=== PATIENT | female | born 1985 | race Caucasian/White ===

== ENCOUNTER 2020-07-19 14:21 | Outpatient (CLI) | payer OTHER, SELFPAY ==
[2020-07-19 15:33] LABS: Beta HCG Quantitative < 2.39 mIU/ML
[2020-07-19 15:43] LABS: T4 Thyroxine 7.21 ug/dL (5.53-11.0)
[2020-07-19 16:11] LABS: Hepatitis C Virus Antibody Negative (Negative)
[2020-07-20 12:03] LABS: Rapid Plasma Reagin Non-Reactive (NonReactive)
[2020-07-24 12:57] LABS: HSV 1 IgM Screen Negative (Negative); HSV 2 IgM Screen Negative (Negative)
[2020-07-25 07:05] LABS: FSH 1.7 mIU/mL (***); LH 1.6 mIU/mL (***); Progesterone 3.4 ng/mL (***)
== END 2020-07-19 14:22 | disposition home or self-care (01) ==
LOC: ANHLAB 14:24
PROVIDERS: PCP Nurse Practitioner Family; Visit Provider Obstetrics & Gynecology
DX: N92.6 Irregular menstruation, unspecified (principal)
CPT/HCPCS: 36415; 83001; 83002; 84144; 84436; 84443; 84702; 86592; 86695; 86696; 86803

== ENCOUNTER 2021-01-29 09:04 | Outpatient (CLI) | payer OTHER, SELFPAY ==
--- NOTE | ~2021-01-29 | US_ITS ---
EXAMINATION: US pelvic complete w TV DATE: 01/29/2021 09:36 INDICATION: Irregular bleeding TECHNIQUE: Multiple transabdominal and endovaginal sonographic images of the pelvis were obtained. COMPARISON: None. FINDINGS: The uterus measures 9.9 x 6.3 x 4.7 cm. There is a 1.3 x 1.8 x 2.0 cm isoechoic lesion of t he anterior uterine body, consistent with an intramural fibroid. The endometrial complex measures 6 m m. The right ovary measures 2.5 x 2.2 x 2.3 cm. The left ovary measures 2.5 x 1.9 x 2.7 cm. There is normal vascular flow in the ovaries. There is no free fluid in the pelvis. IMPRESSION: 1. No sonographic correlate for the patient's symptoms. Reviewed, dictated and finalized at location A.
== END 2021-01-29 09:05 | disposition home or self-care (01) ==
PROVIDERS: PCP Nurse Practitioner Family; Visit Provider Obstetrics & Gynecology
DX: N92.6 Irregular menstruation, unspecified (principal)
CPT/HCPCS: 76830; 76856

== ENCOUNTER → 2021-02-23 00:58 | Outpatient (CLI) | payer OTHER, SELFPAY ==
[2021-02-23 16:45] LABS: SARS-CoV-2 RNA PCR Negative
== END ==
PROVIDERS: PCP Nurse Practitioner Family; Visit Provider Obstetrics & Gynecology
DX: Z01.812 Encounter for preprocedural laboratory examination (principal); Z20.822 Contact with and (suspected) exposure to COVID-19
CPT/HCPCS: C9803; U0003; U0005

== ENCOUNTER 2021-02-27 02:07 | Day surgery (SDC) | payer OTHER, SELFPAY ==
[2021-02-21 12:16] VITALS: BMI 25.7
[2021-02-27] MEDS: ACETAMINOPHEN 500 MG TABLET 1000 MG PO (10:35)
[2021-02-27] MEDS: LACTATED RINGERS 1,000 ML 30 ML IV CONT (10:36)
[2021-02-27 10:47] VITALS: BP 106/67; PULSE 64; RESP 16; TEMP 36; O2SAT 100
--- NOTE | 2021-02-27 11:22 | PM.IMHP ---
H&P: HPI History of Present Illness Date/Time: 02/27/21 11:22 She has had what she describes as spotting periodically for over a year and not relieved with hormonal options. Her ultrasound was normal. Discussed option of hysteroscopy for the recurrent irregular bleeding. She wants to get the hysteroscopy. She will be getting a D&C hysteroscopy secondary to abnormal uterine bleeding. She has declined IUD or Depo Provera. Informed of risks of procedure to include bleeding infection injury to other organs in the urine and to repair and/or remove those organs if necessary to save her life she informed of risk of uterine perforation risk of laparoscopy laparotomy. Informed that if the pathology comes back abnormal risk of needing further more extensive procedure. She declines trying other hormonal options. Discussed postop precautions pelvic rest for 2 weeks no bath or saunas 2 weeks. Her questions were answered. Consent signed Chief Complaint: Persistent abnormal uterine bleeding Review of Systems Review of Systems: All systems reviewed & are unremarkable except as noted in HPI and below Cardiovascular: Cardiovascular: Reports no additional cardiovascular complaints, Denies chest pain and Denies dyspnea Respiratory: Respiratory: Reports no additional respiratory complaints and Denies dyspnea Gastrointestinal: Gastrointestinal: Reports abdominal pain, Denies change in bowel habits, Denies diarrhea, Denies nausea and Denies vomiting Genitourinary: Genitourinary: Reports pelvic pain Musculoskeletal: Musculoskeletal: Reports back pain Integumentary/Breasts: Skin/Breast: Reports system reviewed and no additional complaints, except as docu Neurologic: Reports system reviewed and no additional complaints, except as documented PMFSH Past Medical History Medical History Abnormal Pap smear of cervix 07/19/20, ASCUS, HPV neg Asthma Mitral valve prolapse pt denies knowledge of or any symptoms from MVP Oligohydramnios Surgical History Surgical History H/O wisdom tooth extraction Hx of tonsillectomy Hx of tubal ligation Social History Social History Smoking status: Never smoker Second hand tobacco smoke exposure: No Alcohol intake: current Substance use: never Living arrangements: with family Additional living arrangements comments: CHILDREN Gender identity (if verbalized by the patient): Female Spiritual care concerns: No Meds Home Medications and Allergies Home Medications Medication Instructions Recorded Confirmed Type albuterol 90 mcg INHALATION Q4-6H PRN 02/21/21 02/27/21 History multivitamin [Multiple Vitamin] 1 tablet PO DAILY 02/21/21 02/27/21 History Allergies Allergy/AdvReac Type Severity Reaction Status Date / Time Sulfa (Sulfonamide Allergy Intermediate hives/RASH Verified 02/27/21 10:45 Antibiotics) venom-honey bee Allergy Intermediate SWELLING Verified 02/27/21 10:45 ketorolac Allergy Unknown Skin Verified 02/21/21 12:13 Reaction Vital Signs Vital Signs - 24 hr 02/27/21 10:47 Temperature 96.8 F L Pulse Rate 64 Respiratory Rate 16 Blood Pressure 106/67 Pulse Oximetry 100 Exam Const: Orientation/consciousness: oriented to person and oriented to place HENMT: Head: normal to inspection Eyes: General: appearance normal, both eyes and all related structures Resp: Effort & Inspection: normal respiratory effort Auscultation: clear to auscultation bilaterally Cardio: Rate: regular rate Rhythm: regular rhythm GI: Inspection: normal to inspection GI Palp: No Rebound tenderness present : External Female Exam: normal external appearance Speculum Exam - Vagina: normal appearance of the vagina Speculum Exam - Cervix: normal appearance of the cervix Bimanual exam- vagina & uterus: normal biman
--- NOTE | 2021-02-27 11:37 | WPDANESEPPF ---
Anes - Initial Pre Proc Eval Procedure: Operation Date: 02/27/21 11:45 Proposed Procedures p Hysteroscopy Dilation and Curettage - Dhiraj Reyna MD Date/Time: 02/27/21 11:37 Surgeon: Dhiraj Reyna MD Pre Op Diagnosis: abnormal uterine bleeding Patient Data Age: 35 Gender: F Height: 1.63 m Weight: 67.5 kg Last Vital Signs Temp 96.8 F L 02/27/21 10:47 Pulse 64 02/27/21 10:47 Resp 16 02/27/21 10:47 BP 106/67 02/27/21 10:47 Pulse Ox 100 02/27/21 10:47 Allergies Allergy/AdvReac Type Severity Reaction Status Date / Time Sulfa (Sulfonamide Allergy Intermediate hives/RASH Verified 02/27/21 10:45 Antibiotics) venom-honey bee Allergy Intermediate SWELLING Verified 02/27/21 10:45 ketorolac Allergy Unknown Skin Verified 02/21/21 12:13 Reaction Home Medications Medication Instructions Recorded Confirmed Type albuterol 90 mcg INHALATION Q4-6H PRN 02/21/21 02/27/21 History multivitamin [Multiple Vitamin] 1 tablet PO DAILY 02/21/21 02/27/21 History Patient hx anesthesia problems: none Family hx anesthesia problems: none PMFSH Past Medical History Medical History (Updated 02/27/21 @ 11:37 by Nathan Lewis MD) Abnormal Pap smear of cervix 07/19/20, ASCUS, HPV neg Asthma Mitral valve prolapse pt denies knowledge of or any symptoms from MVP Oligohydramnios Surgical History Surgical History H/O wisdom tooth extraction Hx of tonsillectomy Hx of tubal ligation Social History Social History Smoking status: Never smoker Second hand tobacco smoke exposure: No Alcohol intake: current Substance use: never Living arrangements: with family Additional living arrangements comments: CHILDREN Gender identity (if verbalized by the patient): Female Spiritual care concerns: No Anes - Eval Final PreProcedure Day of Procedure 02/27/21 11:37 Patient weight: normal Heart: regular rate and rhythm Lungs: clear to auscultation Airway: Mallampati scale class II Neurological: alert and oriented Last oral intake: >/= 8 hours ASA classification: II Emergent: no Anesthetic plan: proceed Anesthesia type and monitoring: general GIVS and standard monitoring Informed Consent: The patient's anesthetic plan and its attendant risks and benefits were discussed with the patient/family/POA. Questions were solicited and answers provided to the satisfaction of the patient/family/POA.
--- NOTE | 2021-02-27 11:46 | WPDHPUPDATE1 ---
History and Physical Update Update Date/Time: 02/27/21 11:46 History and Physical has been reviewed, including an updated exam of the patient. There are NO changes in the patient's condition. Risks, benefits, and alternatives have been discussed and questions answered. Patient agrees to proceed with procedure.
[2021-02-27] MEDS: ceFAZolin 2 GM/D5W 50 ML 2 GM/50 ML BAG IVPB (11:55)
[2021-02-27 12:27] VITALS: BP 96/64; PULSE 64; RESP 20; O2SAT 99
--- NOTE | 2021-02-27 12:40 | W.PM.PROC2 ---
Procedure Note - Detailed Date of Procedure 02/27/21 Pre-op Diagnosis abnormal uterine bleeding Post-op Diagnosis same Procedure Performed dilation and curettage diagnostic hysteroscopy Surgeon Dhiraj Reyna MD Anesthesia MAC and local Indications patient with persistent irregular bleeding with spotting in between periods resistant to control pills she declined Findings normal uterine cavity. Description of Procedure After informed consent was obtained patient was taken to the operating room and adequate IV sedation was administered. She was placed in high lithotomy position and prepped and draped in sterile fashion. Attention was turned to the vagina speculum was inserted single-tooth tenaculum placed on anterior lip of the cervix. The uterus was sound to 8.5 cm. The cervix was dilated to an 8 Marquez dilator the hysteroscope was inserted the cavity appeared normal there may have been some areas that were more proliferative lining. The hysteroscope was removed and an endometrial curettage and endocervical curettage was performed with moderate amount of tissue obtained. The patient tolerated procedure well sponge count was correct hemostasis was noted at the tenaculum site when it was removed. Patient was taken to recovery room. Estimated Blood Loss 5 Drains No Packing No Pathology yes (1. Endocervical currettage 2. Endometrial currettings) Complications No immediate complications Condition stable Disposition same day
[2021-02-27] MEDS: oxyCODONE HCL (*CRX) 5 MG TAB IR PO (12:53)
[2021-02-27 13:00] VITALS: BP 121/78; PULSE 54; RESP 20; O2SAT 100
[2021-02-27] MEDS: fentaNYL CITRATE INJ (*CRX) 100 MCG/2 ML VIAL 25 MCG IV PUSH ×4 (13:17→13:38)
[2021-02-27 13:30] VITALS: BP 118/72; PULSE 60; RESP 20
[2021-02-27 13:55] VITALS: BP 110/64; PULSE 60; RESP 20
== END 2021-02-27 14:00 | disposition home or self-care (01) ==
PROVIDERS: PCP Nurse Practitioner Family; Visit Provider Obstetrics & Gynecology
PROC: 0U5B8ZZ Destruction of Endometrium, Via Natural or Artificial Opening Endoscopic (ICD-10-PCS; CPT 58563; principal; 2021-02-27 11:45)
DX: N93.9 Abnormal uterine and vaginal bleeding, unspecified (principal); J45.909 Unspecified asthma, uncomplicated; Z79.51 Long term (current) use of inhaled steroids
CPT/HCPCS: 58558; 88305; A9270; J0690; J1170; J2250; J2704; J3010; J7030; J7120

== ENCOUNTER 2021-06-28 16:05 | Emergency (ER) | payer OTHER, SELFPAY ==
[2021-06-28] VITALS (15 sets, daily range): BP systolic 95–109; BP diastolic 60–81; PULSE 73–95; RESP 14–23; TEMP 36.2–36.8; O2SAT 98–100
--- NOTE | 2021-06-28 16:27 | ECG_ITS ---
Measurements Intervals [place] Rate: 84 P: 71 MI: 150 QRS: 46 QRSD: 78 T: 60 QT: 342 QTc: 405 Interpretive Statements SINUS RHYTHM NORMAL ECG Electronically Signed On 06-28-2021 20:01:52 [employer] by Garcia Colmenares D.O.
[2021-06-28 16:45] LABS: Basophils Percent Auto 0.1 % (0.2-1.2); Eosinophils Absolute Auto 0.2 K/mm3 (0-0.3); Eosinophils Percent Auto 2.4 % (0-4.4); Hematocrit 41.6 % (37.0-47.0); Hemoglobin 14.4 g/dL (12.0-15.0); Immature Granulocyte Absolute 0.02 K/mm3 (0.00-0.031); Immature Granulocyte Percent A 0.3 % (0-0.5); Lymphocytes Absolute Auto 2.82 K/mm3 (0.9-3.2); Lymphocytes Percent Auto 39.5 % (18.3-44.2); Mean Corpuscular HGB Conc 34.6 g/dl (32-36); Mean Corpuscular Hemoglobin 31.5 pg (26-34); Mean Platelet Volume 9.9 fl (7.4-10.4); Monocytes Absolute Auto 0.6 K/mm3 (0.1-0.6); Monocytes Percent Auto 8.7 % (2.6-8.5); Neutrophils Absolute Auto 3.5 K/mm3 (1.3-6.7); Platelet Count Result 239 k/mm3 (150-375); Red Blood Count 4.57 M/mm3 (4.2-5.4); Red Cell Distribution Width 11.4 % (11.5-14.5); White Blood Count 7.1 K/mm3 (4.5-10.0)
[2021-06-28 16:57] LABS: Alanine Aminotransferase 20 U/L (4-35); Albumin Level 4.2 g/dL (3.5-5.1); Alkaline Phosphatase 60 U/L (38-126); Anion Gap 5 mmol/L (8-16); Aspartate Amino Transferase 20 U/L (14-36); Bilirubin,Total 0.3 mg/dL (0.2-1.3); Blood Urea Nitrogen 11 mg/dL (7-17); Calcium 8.8 mg/dL (8.4-10.2); Carbon Dioxide 29 mmol/L (22-30); Chloride 105 mmol/L (98-107); Estimated CRCL calculation 100 ml/min; Estimated Glomerular Filt Rate > 60; Glucose 95 mg/dL (65-110); Sodium 139 mmol/L (137-145)
--- NOTE | 2021-06-28 17:17 | ED.DIZZY ---
HPI - Dizziness General Chief Complaint: Dizziness Stated Complaint: dizzy Time Seen by Provider: 06/28/21 17:03 Source: patient Mode of arrival: ambulatory Limitations: no limitations History of Present Illness HPI Narrative: Patient is a 36-year-old female complaining of dizziness, described as the room spinning, worse with movement of the head that started this morning but states that she is feeling better. Patient denies any headache, speech or visual disturbance, focal weakness or numbness, or unsteady gait. Patient denies any chest pain, shortness of breath, abdominal pain, nausea, vomiting, fever or chills. Related Data Home Medications Medication Instructions Recorded Confirmed albuterol 90 mcg INHALATION Q4-6H PRN 02/21/21 03/30/21 multivitamin [Multiple Vitamin] 1 tablet PO DAILY 02/21/21 03/30/21 Allergies Allergy/AdvReac Type Severity Reaction Status Date / Time Sulfa (Sulfonamide Allergy Intermediate hives/RASH Verified 03/27/21 14:06 Antibiotics) venom-honey bee Allergy Intermediate SWELLING Verified 03/27/21 14:06 ketorolac Allergy Unknown Skin Verified 03/27/21 14:06 Reaction Review of Systems Review of Systems: All systems reviewed & are unremarkable except as noted in HPI and below Constitutional: Constitutional: Denies body ache(s), Denies chills, Denies excessive sweating, Denies fatigue, Denies fever(s), Denies headache(s), Denies lethargy, Denies malaise, Denies weakness and Denies weight loss Eyes: Eyes: Denies blurry vision, Denies change in vision and Denies loss of vision ENT: Denies dizziness, Denies ear discharge, Denies headache(s), Denies lip swelling, Denies epistaxis, Denies nasal congestion, Denies neck pain, Denies throat swelling and Denies tongue swelling Cardiovascular: Cardiovascular: Denies chest pain, Denies chest pain at rest, Denies chest pain with activity, Denies diaphoresis, Denies rapid heart rate, Denies edema, Denies irregular heart rhythm, Denies lightheadedness, Denies palpitations, Denies dyspnea and Denies dyspnea on exertion Respiratory: Respiratory: Denies chest congestion, Denies cough, Denies hemoptysis, Denies dyspnea and Denies dyspnea on exertion Gastrointestinal: Gastrointestinal: Denies abdominal pain, Denies melena, Denies hematochezia, Denies diarrhea, Denies nausea, Denies vomiting and Denies hematemesis Musculoskeletal: Musculoskeletal: Denies abnormal gait, Denies deformity, Denies joint swelling, Denies limited range of motion, Denies neck pain and Denies numbness Neurologic: Denies Abnormal speech present, Denies abnormal gait, Denies confusion, Denies headache(s), Denies focal weakness, Denies loss of vision, Denies numbness, Denies Other visual disturbances, Denies Sensory deficit (Neuro) and Denies weakness Psychiatric: Psychiatric: Denies confusion, Denies depression, Denies auditory hallucinations, Denies homicidal ideation and Denies suicidal ideation Endocrine: Endocrine: Denies cold intolerance, Denies excessive sweating, Denies fatigue, Denies heat intolerance and Denies palpitations Hematologic/Lymphatic: Hematologic/Lymphatic: Denies easy bleeding and Denies easy bruising Allergic/Immunologic: Allergic/Immunologic: Denies lip swelling, Denies throat swelling and Denies tongue swelling PMFSH Past Medical History Medical History Abnormal Pap smear of cervix 07/19/20, ASCUS, HPV neg Asthma Mitral valve prolapse pt denies knowledge of or any symptoms from MVP Oligohydramnios Surgical History Surgical History H/O wisdom tooth extraction History of dilation and curettage History of hysteroscopy Hx of tonsillectomy Hx of tubal ligation Social History Social History Smoking status: Never smoker Second hand tobacco smoke exposure: No Alcohol intake: current Subst
== END 2021-06-28 19:31 | disposition home or self-care (01) ==
LOC: ANHED 18:02
PROVIDERS: Emergency Medicine; Emergency Provider Emergency Medicine
DX: H81.10 Benign paroxysmal vertigo, unspecified ear (principal); J45.909 Unspecified asthma, uncomplicated
CPT/HCPCS: 36415; 80053; 81025; 85025; 93005; 99284

== ENCOUNTER 2022-10-13 14:53 | Outpatient (CLI) | payer OTHER, SELFPAY ==
[2022-10-16 04:45] LABS: FSH 6.1 mIU/mL (***); LH 2.6 mIU/mL (***); Progesterone 0.9 ng/mL (***)
== END 2022-10-13 14:54 | disposition home or self-care (01) ==
PROVIDERS: Visit Provider Obstetrics & Gynecology
DX: N92.6 Irregular menstruation, unspecified (principal)
CPT/HCPCS: 36415; 83001; 83002; 84144; 84443

== ENCOUNTER 2023-01-21 16:50 | Outpatient (CLI) | payer OTHER, SELFPAY ==
--- NOTE | ~2023-01-21 | US_ITS ---
US abdomen limited INDICATION: Nausea and vomiting PROCEDURE: Realtime right upper abdominal ultrasound. COMPARISON: CT dated 03/22/2017 FINDINGS: The pancreas is normal without focal mass or pancreatic ductal dilation. There is an isoec hoic ill-defined mass in the left hepatic lobe causing mass effect on the gallbladder measuring 3 x 2 .4 x 2.3 cm. There is normal directional flow in the portal vein. The gallbladder is normal without stones, gallbladder wall thickening or pericholecystic fluid. Comm on bile duct measures 4 mm. No sonographic Valdez's sign. IMPRESSION: 1: Isoechoic liver mass measuring up to 3 cm causing mass effect on the gallbladder. Correlation with CT without and with contrast with delayed postcontrast images recommended. Reviewed, dictated and finalized at location L. IMPRESSION: 1: Isoechoic liver mass measuring up to 3 cm causing mass effect on the gallbla dder. Correlation with CT without and with contrast with delayed postcontrast i juhi recommended.
== END 2023-01-21 16:51 | disposition home or self-care (01) ==
LOC: ANHIMG 16:53
PROVIDERS: Visit Provider Nurse Practitioner
DX: R11.2 Nausea with vomiting, unspecified (principal); K21.9 Gastro-esophageal reflux disease without esophagitis; F12.90 Cannabis use, unspecified, uncomplicated
CPT/HCPCS: 76705

== ENCOUNTER 2023-02-05 01:52 | Day surgery (SDC) | payer OTHER, SELFPAY ==
[2023-01-26 09:14] VITALS: BMI 28.3
--- NOTE | 2023-02-04 16:20 | P.HP_ITS ---
History of Present Illness History of Present Illness Consent: Risks, benefits, and alternatives have been discussed and questions answered. Patient agrees to proceed with procedure. Chief complaint: vomiting, nausea, GERD Narrative: Mercedes Coffman is a 37 year old female Who was referred for investigation of persistent nausea that comes and goes during the day. She also will vomit or regurgitate acid about once a week. She denies dysphagia. Omeprazole has not seemed to help. she in fact gained weight when she was taking omeprazole. He has stop it and is feeling somewhat better. She does use ibuprofen a couple times a week and is a daily user of marijuana [facility] Past Medical History Medical History Abnormal finding on imaging of liver Abnormal Pap smear of cervix 07/19/20, ASCUS, HPV neg Anxiety Asthma Gastroesophageal reflux disease Liver mass, left lobe Marijuana smoker Mitral valve prolapse pt denies knowledge of or any symptoms from MVP Nausea and vomiting Oligohydramnios Surgical History Surgical History H/O wisdom tooth extraction History of dilation and curettage History of hysteroscopy Hx of tonsillectomy Hx of tubal ligation Social History Social History Smoking status: Never smoker Second hand tobacco smoke exposure: No Alcohol intake: never Substance use: current Substance use type: marijuana Other substance usage details: gummies to help with sleep Lack of Transportation: No Lack of Food: Never True Current Housing: I Have Housing Concerned About Future Housing: No Difficulty Paying Gas/Electric Bills: No Difficulty Paying for Meds: No Currently Unemployed: No Education: High School Diploma/GED Difficulty w/ Childcare or Family Care: No Living arrangements: with family Additional living arrangements comments: CHILDREN Gender identity (if verbalized by the patient): Female Spiritual care concerns: No Meds Home Medications and Allergies Home Medications Medication Instructions Recorded Confirmed Type multivitamin 1 tablet PO DAILY 02/21/21 02/05/23 History lansoprazole 30 mg capsule,delayed 30 mg PO DAILY #30 caps 01/14/23 02/05/23 Rx release (Prevacid) semaglutide (weight loss) 0.5 0.5 mg subcut WEEKLY 01/26/23 02/05/23 History mg/0.5 mL subcutaneous pen injector (Wegovy) Allergies Allergy/AdvReac Type Severity Reaction Status Date / Time Sulfa (Sulfonamide Allergy Intermediate hives/RASH Verified 02/05/23 10:26 Antibiotics) venom-honey bee Allergy Intermediate SWELLING Verified 02/05/23 10:26 ketorolac Allergy Unknown Skin Verified 02/05/23 10:26 Reaction Assessment and Plan Assessment and plan (1) Nausea and vomiting: Qualifiers: Vomiting type: unspecified Qualified Code(s): R11.2 - Nausea with vo miting, unspecified Code(s): R11.2 - Nausea with vomiting, unspecified Status: Acute Assessment and Plan: EGD with possible biopsy or dilatation or cautery.
[2023-02-05 10:27] VITALS: BP 100/70; PULSE 81; RESP 16; TEMP 36.4; O2SAT 99
[2023-02-05] MEDS: LACTATED RINGERS 1,000 ML 150 ML IV CONT (10:37)
--- NOTE | 2023-02-05 10:55 | WPDANESEPPF ---
Anes - Initial Pre Proc Eval Procedure: Operation Date: 02/05/23 11:30 Proposed Procedures p Esophagogastroduodenoscopy - Marcus Nevarez MD Date/Time: 02/05/23 10:55 Surgeon: Marcus Nevarez MD Pre Op Diagnosis: vomiting, nausea, GERD Patient Data Age: 37 Gender: F Height: 1.63 m Weight: 74.6 kg Last Vital Signs Temp 97.6 F 02/05/23 10:27 Pulse 81 02/05/23 10:27 Resp 16 02/05/23 10:27 BP 100/70 02/05/23 10:27 Pulse Ox 99 02/05/23 10:27 O2 Del Method Room Air 02/05/23 10:27 Allergies Allergy/AdvReac Type Severity Reaction Status Date / Time Sulfa (Sulfonamide Allergy Intermediate hives/RASH Verified 02/05/23 10:26 Antibiotics) venom-honey bee Allergy Intermediate SWELLING Verified 02/05/23 10:26 ketorolac Allergy Unknown Skin Verified 02/05/23 10:26 Reaction Home Medications Medication Instructions Recorded Confirmed Type multivitamin 1 tablet PO DAILY 02/21/21 02/05/23 History lansoprazole 30 mg capsule,delayed 30 mg PO DAILY #30 caps 01/14/23 02/05/23 Rx release (Prevacid) semaglutide (weight loss) 0.5 0.5 mg subcut WEEKLY 01/26/23 02/05/23 History mg/0.5 mL subcutaneous pen injector (Wegovy) Patient hx anesthesia problems: none Family hx anesthesia problems: none Results Review: All pre-operative results and documents have been reviewed as part of the pre-operative evaluation. [facility] Past Medical History Medical History (Updated 01/22/23 @ 10:35 by Esther Oakley APRN) Abnormal finding on imaging of liver Abnormal Pap smear of cervix 07/19/20, ASCUS, HPV neg Anxiety Asthma Gastroesophageal reflux disease Liver mass, left lobe Marijuana smoker Mitral valve prolapse pt denies knowledge of or any symptoms from MVP Nausea and vomiting Oligohydramnios Surgical History Surgical History H/O wisdom tooth extraction History of dilation and curettage History of hysteroscopy Hx of tonsillectomy Hx of tubal ligation Social History Social History Smoking status: Never smoker Second hand tobacco smoke exposure: No Alcohol intake: never Substance use: current Substance use type: marijuana Other substance usage details: gummies to help with sleep Lack of Transportation: No Lack of Food: Never True Current Housing: I Have Housing Concerned About Future Housing: No Difficulty Paying Gas/Electric Bills: No Difficulty Paying for Meds: No Currently Unemployed: No Education: High School Diploma/GED Difficulty w/ Childcare or Family Care: No Living arrangements: with family Additional living arrangements comments: CHILDREN Gender identity (if verbalized by the patient): Female Spiritual care concerns: No Anes - Eval Final PreProcedure Day of Procedure 02/05/23 10:55 Patient weight: normal Heart: regular rate and rhythm Lungs: clear to auscultation Airway: Mallampati scale class II Neurological: alert and oriented Last oral intake: >/= 8 hours ASA classification: II Emergent: no Anesthetic plan: proceed Anesthesia type and monitoring: general GIVS and standard monitoring Results Review: All pre-operative results and documents have been reviewed as part of the pre-operative evaluation. Informed Consent: The patient's anesthetic plan and its attendant risks and benefits were discussed with the patient/family/POA. Questions were solicited and answers provided to the satisfaction of the patient/family/POA.
[2023-02-05 11:47] VITALS: BP 96/67; PULSE 66; RESP 17; O2SAT 98
[2023-02-05 11:57] VITALS: BP 102/66; PULSE 61; RESP 17; O2SAT 100
[2023-02-05 12:07] VITALS: BP 106/76; PULSE 67; RESP 17; O2SAT 100
== END 2023-02-05 12:16 | disposition home or self-care (01) ==
PROVIDERS: Visit Provider Internal Medicine Gastroenterology
PROC: 0DJ08ZZ Inspection of Upper Intestinal Tract, Via Natural or Artificial Opening Endoscopic (ICD-10-PCS; CPT 43235; principal; 2023-02-05 11:30)
DX: R11.2 Nausea with vomiting, unspecified (principal); K31.84 Gastroparesis; F12.90 Cannabis use, unspecified, uncomplicated
CPT/HCPCS: 43239; 87081; 88305; J2405; J2704; J3010; J7120

== ENCOUNTER 2023-02-12 07:50 | Outpatient (CLI) | payer OTHER, SELFPAY ==
--- NOTE | ~2023-02-12 | CT_ITS ---
EXAMINATION: CT abdomen wo/w con DATE: 02/12/2023 08:20 INDICATION: Liver mass causing compression of the gallbladder TECHNIQUE: Computed tomography (CT) of the abdomen and pelvis was performed without and with 100 mL O mnipaque-350 intravenous contrast utilizing a standard liver mass protocol. Automated exposure contro l and iterative reconstruction technique were employed. The dose-length product was 890.33 mGy-cm. COMPARISON: CT dated 03/22/[address] dated 01/21/2023 FINDINGS: Lung bases are clear. Heart size is normal. No pericardial or pleural effusion. Unchanged small regio n of focal hepatic steatosis. 3.2 x 2.7 cm arterially enhancing mass in segment IVb of the liver whic h equilibrates and enhancement to the surrounding liver on the portal venous phase without evident wa shout. The mass in retrospect is nearly indiscernible bowed subtly present on the prior study at [facility] h time it measured 2.4 x 1.8 cm which favors a benign etiology. No other hepatic lesions identified. Gallbladder, spleen, pancreas, bilateral adrenal glands and kidneys are normal. Bowels including the appendix are normal. Decompressed bladder is normal. Irregular contour to the endometrial complex of the anteverted uterus with more masslike appearance of hypoattenuation with surrounding enhancement e xtending into the myometrium at the fundus. No free intraperitoneal gas or fluid. No pathologically e nlarged abdominal or pelvic lymphadenopathy. Schmorl's node at the superior endplates of L3 as well a s T8-T11. IMPRESSION: 1. Slow growth over 6 years consistent with a benign etiology of a now 3.2 x 2.7 cm arterially enhanc ing liver lesion which equilibrates to the surrounding liver on portal venous phase which would be mo st consistent with other focal nodular hyperplasia or hepatic adenoma if the patient been on chronic oral contraceptives. Although most likely benign, hepatic adenomas have an increased risk of hemorrha ge and would recommend further evaluation with multiphase MRI performed with MultiHance which should allow for differentiation between the 2 potential etiologies. 2. Masslike extension of the endometrial complex into the myometrium at the fundus most consistent wi th focal adenomyomatosis. Would consider further evaluated with either pelvic ultrasound or MRI. Reviewed, dictated and finalized at location L. IMPRESSION: 1. Slow growth over 6 years consistent with a benign etiology of a now 3.2 x 2. 7 cm arterially enhancing liver lesion which equilibrates to the surrounding li michael on portal venous phase which would be most consistent with other focal nodu lar hyperplasia or hepatic adenoma if the patient been on chronic oral contrace ptives. Although most likely benign, hepatic adenomas have an increased risk of hemorrhage and would recommend further evaluation with multiphase MRI performe d with MultiHance which should allow for differentiation between the 2 potentia l etiologies. 2. Masslike extension of the endometrial complex into the myometrium at the fun dus most consistent with focal adenomyomatosis. Would consider further evaluate d with either pelvic ultrasound or MRI.
== END 2023-02-12 07:51 | disposition home or self-care (01) ==
LOC: ANHIMG 07:53
PROVIDERS: Visit Provider Nurse Practitioner
DX: R16.0 Hepatomegaly, not elsewhere classified (principal); R93.2 Abnormal findings on diagnostic imaging of liver and biliary tract
CPT/HCPCS: 74170; Q9967

== ENCOUNTER 2023-02-26 15:20 | Outpatient (CLI) | payer OTHER, SELFPAY ==
--- NOTE | ~2023-02-26 | US_ITS ---
EXAMINATION: US pelvic complete w TV DATE: 02/26/2023 16:08 INDICATION: R10.2 - Pelvic and perineal pain TECHNIQUE: Multiple transabdominal and endovaginal sonographic images of the pelvis were obtained. COMPARISON: 01/29/2021 FINDINGS: Uterus: 9.8 x 6.1 x 5.9 cm. 4.2 cm intramural fibroid Endometrial complex measures 6 mm. Right Ovary: 3.7 x 2.2 x 2.5 cm. Vascular flow is present. Irregular, avascular, hyperechoic, 1.7 cm focus in the right ovary. Left Ovary: 2.3 x 2.2 x 2.4 cm. Vascular flow is present. There is no free fluid in the pelvis. IMPRESSION: 4.2 cm intramural fibroid. Possible right ovarian resolving corpus luteal cyst or hemorrhagic cyst which should resolve in the s hort-term, less likely an atypical endometrioma or dermoid which can be followed annually, recommend sonographic follow-up with transabdominal and transvaginal ultrasound in 3 months to assess for resol ution. Reviewed, dictated and finalized at location [facility]. IMPRESSION: 4.2 cm intramural fibroid. Possible right ovarian resolving corpus luteal cyst or hemorrhagic cyst which s hould resolve in the short-term, less likely an atypical endometrioma or dermoi d which can be followed annually, recommend sonographic follow-up with transabd ominal and transvaginal ultrasound in 3 months to assess for resolution.
== END 2023-02-26 15:21 | disposition home or self-care (01) ==
LOC: ANHIMG 15:22
PROVIDERS: Visit Provider Obstetrics & Gynecology
DX: R10.2 Pelvic and perineal pain (principal); D25.9 Leiomyoma of uterus, unspecified
CPT/HCPCS: 76830; 76856

== ENCOUNTER 2024-01-14 10:48 | Outpatient (CLI) | payer OTHER, SELFPAY ==
[2024-01-14 12:27] LABS: HIV 1/2 Ab P24 Ag Result Negative (Negative)
[2024-01-14 13:58] LABS: Hepatitis B Surface Antigen Negative (Negative)
[2024-01-14 14:16] LABS: Hepatitis C Virus Antibody Negative (Negative)
[2024-01-14 16:44] LABS: Rapid Plasma Reagin Non-Reactive (NonReactive)
== END 2024-01-14 10:49 | disposition home or self-care (01) ==
LOC: ANHLAB 10:49
PROVIDERS: Visit Provider Nurse Practitioner Family
DX: Z11.3 Encounter for screening for infections with a predominantly sexual mode of transmission (principal)
CPT/HCPCS: 36415; 86592; 86703; 86803; 87340; G0432

== ENCOUNTER 2024-06-10 09:02 | Emergency (ER) | payer OTHER, SELFPAY ==
--- NOTE | 2024-06-10 09:05 | ED_ITS ---
HPI - Female Genitourinary General Stated complaint: urinary/kidney issue Time Seen by Provider: 06/10/24 09:04 Source: patient Mode of arrival: ambulatory Limitations: no limitations History of Present Illness HPI Narrative: Mercedes is a 39-year-old female patient presenting to the clinic today with complaints of possible UTI/kidney infection. She reports she has been having urinary frequency and left sided flank pain for the past 2 days. This morning she states she had some coughing and nasal drainage. Denies any fever, chills, or body aches. States the pain is deep in her left flank and is worse with mo vement. Rates the pain currently 5/10. States that this has happened before and she had a kidney infection on the right side. Patient is just starting her menses. History of tubal ligation. Denies any vaginal discharge or odor. No concern for STI this time Related Data Home Medications Medication Instructions Recorded Confirmed multivitamin 1 tablet PO DAILY 02/21/21 05/23/24 Allergies Allergy/AdvReac Type Severity Reaction Status Date / Time Sulfa (Sulfonamide Allergy Intermediate hives/RASH Verified 05/23/24 10:56 Antibiotics) venom-honey bee Allergy Intermediate SWELLING Verified 05/23/24 10:56 ketorolac Allergy Unknown Skin Verified 05/23/24 10:56 Reaction Review of Systems Review of Systems: Pertinent positives per HPI. Patient denies any fever, chills, rash, headache, visual changes, dizziness, sore throat, shortness of breath, chest pain, palpitations, nausea, vomiting, diarrhea, constipation, abdominal pain PMFSH Past Medical History Medical History Abnormal finding on imaging of liver Abnormal Pap smear of cervix 07/19/20, ASCUS, HPV neg Anxiety Asthma Gastroesophageal reflux disease Liver mass, left lobe Marijuana smoker Mitral valve prolapse pt denies knowledge of or any symptoms from MVP Nausea and vomiting Oligohydramnios Surgical History Surgical History H/O wisdom tooth extraction History of dilation and curettage History of esophagogastroduodenoscopy (EGD) History of hysteroscopy Hx of tonsillectomy Hx of tubal ligation Social History Social History (Reviewed 06/10/24 @ 09:38 by MELISSA Joseph Smoking status: Never smoker Second hand tobacco smoke exposure: No Alcohol intake: never Substance use: current Substance use type: marijuana Other substance usage details: gummies to help with sleep Lack of Transportation: No Lack of Food: Never True Current Housing: I Have Housing Concerned About Future Housing: No Difficulty Paying Gas/Electric Bills: No Difficulty Paying for Meds: No Currently Unemployed: No Education: High School Diploma/GED Difficulty w/ Childcare or Family Care: No Living arrangements: with family Additional living arrangements comments: CHILDREN Gender identity (if verbalized by the patient): Female Spiritual care concerns: No Comments At the time of my signature, I reviewed and agree with the nursing past medical, surgical, social, and family history. There is no relevant family history pertinent to the patient complaint. Exam Narrative: General: Well-developed, well nourished, in no apparent distress. Head: Normocephalic, atraumatic. Cardio: Regular rate and rhythm, s1 and s2 normal, no murmur appreciated. Resp: Clear to auscultation bilaterally, no rhonchi, rales, wheezing or rubs. Abdomen: Soft, pliable, bowel sounds present in all quadrants, non-tender to palpation, no organomegly, no CVAT tenderness. Course Course Emergency Course: Portions of this record may have been created with voice recognition software. Level of Care: Express Care Visit Vital Signs Vital signs: Vital signs reviewed MDM - Female Genitourinary MDM Narrative Medical decision making narrative: At the time of visit patient is resting comfortably on the exam table. Patient appears to be nontoxic. Labs: Urinalysis shows trace of leukocytes and 3+ blood. We will send urine for culture. Plan: I suspect patient has left flank pain-likely musculature and UTI. Patient does not any CVAT tenderness fever, abdominal pain, nausea, or vomiting. Will place patient on cephalexin. Recommend follow-up if symptoms do not improve as patient could possibly have a kidney stone. Supportive measures were discussed with the patient and they voiced understanding discharge instructions and agrees to treatment plan. Return precautions reviewed Differential Diagnosis Differential diagnosis: Likely urinary tract infection, bacterial vaginosis, trichomoniasis, cervicitis, ovarian cyst, vaginitis, cystitis and dysmenorrhea Discharge Plan Discharge Clinical Impression: Left flank pain UTI (urinary tract infection) Qualifiers: Urinary tract infection type: acute cystitis Hematuria presence: with hematuria Qualified Code(s): N30.01 - Acute cystitis with hematuria Patient Disposition: Home, Self-Care Condition: Stable Instructions: Antibiotic Form, Urinary Tract Infection in Women (ED), Flank Pain (ED) Additional Instructions: Urinalysis shows trace leukocytes and 3+ blood. We will send for culture. Take cephalexin as prescribed Increase fluids and stay well hydrated Wipe front to back. May use wet wipes. May take Tylenol/Motrin as needed for pain Avoid tub baths If sexually active- pee before and after intercourse. Wear cotton panties Avoid tight clothing up against the genitals Follow up with your PCP in 1 week if symptoms persist. Prescriptions: New cephalexin 500 mg capsule 500 mg PO Q12H 7 Days Qty: 14 0RF No Action multivitamin Tablet 1 tablet PO DAILY Follow-up/Referrals: UNKNOWN,DOCTOR [Primary Care Provider] - Stand Alone Forms: Work/School Release IP Time of Disposition: 09:29 Quality NIHSS Nursing Documentation ED NIHSS nursing documentation: reviewed/agree
[2024-06-10 09:28] VITALS: BP 106/76; PULSE 97; RESP 16; TEMP 36.1; O2SAT 99
[2024-06-10 09:29] LABS: EDUAAPPEAR Clear; EDUABILI Negative (Negative); EDUABLOOD 3+ (Negative); EDUACOLOR1 Yellow; EDUAGLUCOSE Negative (Negative); EDUAKETONE Negative (Negative); EDUALEUKO Trace (Negative); EDUANITRATE Negative (Negative); EDUAPROTEIN Negative (Negative); EDUASPGRAVITY 1.025; EDUAUROBILI 0.2
== END 2024-06-10 09:38 | disposition home or self-care (01) ==
PROVIDERS: Emergency Provider Nurse Practitioner Family
DX: N30.01 Acute cystitis with hematuria (principal); J45.909 Unspecified asthma, uncomplicated; K21.9 Gastro-esophageal reflux disease without esophagitis; I34.1 Nonrheumatic mitral (valve) prolapse; F12.90 Cannabis use, unspecified, uncomplicated
CPT/HCPCS: 81003; 87086; 99213; G0463

== ENCOUNTER 2024-11-30 10:14 | Outpatient (CLI) | payer OTHER, SELFPAY ==
--- NOTE | ~2024-11-30 | US_ITS ---
Pelvic ultrasound. Clinical History: Leiomyoma Technique: Realtime transabdominal and transvaginal scanning of the pelvis was performed. Color flow Doppler and Doppler spectral analysis were performed. Findings: The uterus is anteverted. The endometrial stripe has a thickness of 6 mm. Uterine fibroid measures 3.9 cm in diameter.. The right ovary measures 3.1 x 2.4 x 4.1 cm. No significant right ovarian or adnexal mass is seen. The left ovary measures 2.4 x 1.5 x 1.9 cm. No significant left ovarian or adnexal mass is seen. There is no evidence of free fluid in the cul de sac. Impression: 3.9 cm uterine fibroid. Reviewed, dictated and finalized at [facility]. Impression: 3.9 cm uterine fibroid.
--- OUTSIDE RECORDS SUMMARY | 2024-11-30 11:45 | XMS_ITS | Clinical Summary ---
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
--- OUTSIDE RECORDS SUMMARY | 2024-11-30 11:45 | XMS_ITS | Encounter Summary ---
Author Organization [facility] Address 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
--- OUTSIDE RECORDS SUMMARY | 2024-11-30 11:45 | XMS_ITS | Clinical Summary ---
Author Organization [facility] Address [address] [address] Care Team Providers Care Surgical Sales Representative Name Role Phone Robert Barry MD Primary Care Provider Source Comments [facility],non-owned Affiliates and Associated Physician Practices is amultiple site organization consisting of ambulatory clinics and hospital sitesin [place], [place], [place] and [place]. This disclosure is being madepursuant to the Care Everywhere program and may not contain all information available regarding this patient. Last updated 18.[facility] Allergies Active Allergy Reactions Criticality Noted Date Comments Sulfa Antibiotics Urticaria Medium 08/05/2021 Medications * Be aware that medications may not be up to date on this document. Alwaysverify current medications with the patient. Semaglutide (OZEMPIC, 1 MG/DOSE, SC) Inject 1 mg subcutaneously every 7 days Active ondansetron, disintegrating , (Zofran ODT) 4 MG tablet DISSOLVE 1 TABLET ON THE TONGUE EVERY 8 HOURS NEEDED FOR NAUSEA/VOMITING 30 tablet 3 Active cyclobenzaprin e (Flexeril) 5 MG tabletIndicati ons:Cervical spondylosis,Ce rvical paraspinal muscle spasm Take 1 (one) tablet by mouth 3 times daily as needed (Muscle spasms) 30 tablet 4 Active carisoprodol (Soma) 350 MG tabletIndicati ons:Cervical paraspinal muscle spasm,Cervical spondylosis,Ne ck pain Take 1 (one) tablet by mouth 3 times daily as needed 90 tablet 4 Active Active Problems Problem Noted Date Diagnosed Date Focal nodular hyperplasia of liver 02/18/2023 Social History Tobacco Use Types Packs/Day Years Used Date Smoking Tobacco: Never Smokeless Tobacco: Never Tobacco Cessation:Counseling Given: Not Answered Alcohol Use Standard Drinks/Week Comments Not Currently 0 (1 standard drink = 0.6 oz pur e alcohol) PHQ-2 Answer Date Recorded Patient Health Questionnaire-2 Score 4 04/18/2024 Comments No Sex and Gender Information Value Date Recorded Sex Assigned at Not on file 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 Gender Identity Not on file Sexual Orientation Not on file Last Filed Vital Signs Vital Sign Reading Time Taken Comments Blood Pressure 107/75 07/06/2024 2:38 PM PAINT ROLLER ASSEMBLER Pulse 79 07/06/2024 2:38 PM PAINT ROLLER ASSEMBLER Temperature 36.5 C (97.7 F) 02/18/2023 9:54 AM CDT Respiratory Rate 18 04/06/2023 8:27 AM CDT Oxygen Saturation 99% 07/06/2024 2:38 PM PAINT ROLLER ASSEMBLER Inhaled Oxygen Concentration - - Weight 72.6 kg (160 lb) 07/06/2024 2:38 PM PAINT ROLLER ASSEMBLER Height 162.6 cm (5' 4 ) 04/25/2024 9:03 AM CDT Body Mass Index 27.46 04/25/2024 9:03 AM CDT Plan of Treatment Health Maintenance Due Date Last Done Comments PAP SMEAR 1986 HIV SCREENING 2001 HEPATITIS C SCREENING 05/14/2004 DTAP/TDAP/TD VACCINES (1 - Tdap) 2005 HEPATITIS B VACCINE (1 of 3 - 19+ 3-dose series) 2005 COVID-19 VACCINE ( - 2023-2 5 season) 2024 DEPRESSION SCREENING 08/10/2024 INFLUENZA VACCINE (Season Ended) 2025 08/08/20 23 ZOSTER VACCINE (1 of 2) 2036 HIB VACCINE Aged Out No longer eligi ble based on patient's age to complete this topic HPV VACCINE Aged Out No longer eligi ble based on patient's age to complete this topic MENINGOCOCCAL (Group B) VACC INE SHARED DECISION-MAKING Aged Out No longer eligibl e based on patient's age to complete this topic MENINGOCOCCAL GROUPS A/C/Y/W VACCINE Aged Out No longer eligible b ased on patient's age to complete this topic PNEUMOCOCCAL VACCINE Aged Out No long er eligible based on patient's age to complete this topic Insurance [facility] Care Teams Surgical Sales Representative Relationship Specialty Start Date End Date Robert Barry MD [address] [place] [id number] PCP - General Family Medicine 09/11/17
--- OUTSIDE RECORDS SUMMARY | 2024-11-30 11:45 | XMS_ITS | Clinical Summary ---
Author Organization [facility] Address [address] [place] [id number] Care Team Providers Care Criminalist Name Role Phone None, Provider MD Primary Care Provider Unavaila ble Allergies Active Allergy Reactions Criticality Noted Date Comments Sulfa Antibiotics Hives 08/05/2021 Medications dextromethorphan -guaiFENesin ER (MUCINEX DM) 30-600 MG TABLET SR 12 HR 12 hr tablet Take 1 tablet by mouth every 12 (twelve) hours as needed. 28 tablet 08/05/2021 Active Social History Tobacco Use Types Packs/Day Years Used Date Smoking Tobacco: Never Smokeless Tobacco: Never Comments No Sex and Gender Information Value Date Recorded Sex Assigned at Not on file Legal Sex Female 9:27 AM SHIRT FOLDER Gender Identity Not on file Sexual Orientation Not on file Last Filed Vital Signs Vital Sign Reading Time Taken Comments Blood Pressure 132/90 08/05/2021 10:18 AM SHIRT FOLDER Pulse 74 08/05/2021 10:18 AM SHIRT FOLDER Temperature 36.7 C (98 F) 08/05/2021 10:18 AM SHIRT FOLDER Respiratory Rate 18 08/05/2021 10:18 AM SHIRT FOLDER Oxygen Saturation 97% 08/05/2021 10:18 AM SHIRT FOLDER Inhaled Oxygen Concentration - - Weight 68 kg (150 lb) 08/05/2021 10:18 AM SHIRT FOLDER Height 162.6 cm (5' 4 ) 08/05/2021 10:18 AM SHIRT FOLDER Body Mass Index 25.75 08/05/2021 10:18 AM SHIRT FOLDER Plan of Treatment Health Maintenance Due Date Last Done Comments Cervical Cancer Screening Pa p Smear (Age 30 to 64) Every 3 Years 1986 Annual Physical 1989 Hepatitis C 2004 Hepatitis B Vaccines (1 of 3 - 19+ 3-dose series) 2005 Cervical Cancer Screening Pa p with HPV Testing (Age 30 to 64) Every 5 Years 2016 Cervical Cancer Screening with HPV 2016 COVID-19 Vaccine (1 - 2023-2 5 season) 2024 DTaP, Tdap and Td Vaccines ( 2 - Td or Tdap) 12/28/2027 12/27/2017 HPV Vaccines Aged Out No longer eligi ble based on patient's age to complete this topic Meningococcal B Vaccine Aged Out No l onger eligible based on patient's age to complete this topic Meningococcal Vaccine Aged Out No erna karina eligible based on patient's age to complete this topic Pneumococcal Vaccine: Pediat rics (0 to 5 Years) and At-Risk Patients (6 to 49 Years) Aged Out No longer eligi ble based on patient's age to complete this topic RSV Immunizations Under 20 Months Aged Out No longer eligible based on patient's age to complete this topic Insurance [employer] Care Teams Criminalist Relationship Specialty Start Date End Date None, Provider, PCP - General 08/05/21
== END 2024-11-30 10:15 | disposition home or self-care (01) ==
PROVIDERS: Visit Provider Nurse Practitioner Family
DX: D25.9 Leiomyoma of uterus, unspecified (principal)
CPT/HCPCS: 76830; 76856

== ENCOUNTER 2024-12-16 08:29 | Emergency (ER) | payer OTHER, SELFPAY ==
[2024-12-16 08:43] VITALS: BP 99/78; PULSE 96; RESP 16; TEMP 36.1; O2SAT 100
--- NOTE | 2024-12-16 08:46 | ED.URI ---
HPI - URI/Sore Throat General Chief Complaint: Upper Respiratory Infection Stated Complaint: Sore Throat/Cough Time Seen by Provider: 12/16/24 08:46 Source: patient Mode of arrival: ambulatory Limitations: no limitations History of Present Illness HPI Narrative: 39-year-old female presents with complaint of nasal congestion, postnasal drainage, continued coughing for the past 2 weeks. Patient reports that she had flu-like symptoms 2 weeks ago. Symptoms never completely resolved. No chest pain or shortness of breath but does report coughing fits. Afebrile. Last night began to have sore throat, concern for strep throat. All systems reviewed and negative except as noted above. Related Data Allergies Allergy/AdvReac Type Severity Reaction Status Date / Time Sulfa (Sulfonamide Allergy Intermediate hives/RASH Verified 12/16/24 09:04 Antibiotics) venom-honey bee Allergy Intermediate SWELLING Verified 12/16/24 09:04 ketorolac Allergy Unknown Skin Verified 12/16/24 09:04 Reaction Review of Systems Review of Systems: CONSTITUTIONAL: Denies fever, chills, or sweats. EYES: Denies visual changes, redness, or discharge. ENT: Reports rhinorrhea, congestion, sore throat. reports otalgia. CARDIOVASCULAR: Denies chest pain, palpitations, or edema. RESPIRATORY: reports cough. Denies dyspnea. GASTROINTESTINAL: Denies abdominal pain, nausea, vomiting, or diarrhea. GENITOURINARY: Denies dysuria or hematuria. SKIN: Denies rash or itching. MUSCULOSKELETAL: Denies back pain, joint pain, or myalgia. NEUROLOGIC: Denies headache, numbness, or weakness. PSYCHIATRIC: Denies anxiety or depression. All other systems reviewed are negative, except as documented in HPI. [facility] Past Medical History Medical History Abnormal finding on imaging of liver Abnormal Pap smear of cervix 07/19/20, ASCUS, HPV neg Anxiety Asthma Gastroesophageal reflux disease Liver mass, left lobe Marijuana smoker Mitral valve prolapse pt denies knowledge of or any symptoms from MVP Nausea and vomiting Oligohydramnios Surgical History Surgical History History of esophagogastroduodenoscopy (EGD) History of dilation and curettage History of hysteroscopy Hx of tubal ligation Hx of tonsillectomy H/O wisdom tooth extraction Social History Social History Smoking status: Never smoker Second hand tobacco smoke exposure: No Alcohol intake: never Substance use: current Substance use type: marijuana Other substance usage details: gummies to help with sleep Lack of Transportation: No Lack of Food: Never True Current Housing: I Have Housing Concerned About Future Housing: No Difficulty Paying Gas/Electric Bills: No Difficulty Paying for Meds: No Currently Unemployed: No Education: High School Diploma/GED Difficulty w/ Childcare or Family Care: No Living arrangements: with family Additional living arrangements comments: CHILDREN Gender identity (if verbalized by the patient): Female Spiritual care concerns: No Comments At time of signature, agree with nursing past medical, surgical, social and family history. There is no relevant family history pertinent to the presenting complaint. Exam Narrative: GENERAL: This is a well-nourished, well-developed patient, in no apparent distress. HEAD: normocephalic, atraumatic. EYES: PERRL. Sclera clear/white. Vision is grossly intact. EARS: External ears normal, auditory canals clear and without drainage, TMs normal without perforation. Hearing grossly intact. NOSE: External nose normal with nasal congestion, erythema and swelling to nares. Maxillary sinus tenderness bilaterally on palpation THROAT: Mucous membranes moist, postnasal drainage, erythema. No significant swelling or exudates. NECK: Neck supple, non-tender without lymphadenopathy, masses or thyromegaly. CARDIOVASCULAR: Regular rate and rhythm without murmurs, gallops, or rubs. RESPIRATORY: Clear to auscultation. Breath sounds equal bilaterally. No wheezes, rales, or rhonchi. SKIN: warm, Dry, intact with no suspicious lesions or rash, good texture and turgor. NEURO: awake, alert, and oriented to person, place and time. There were no obvious focal neurologic abnormalities. EXTREMITIES: No joint tenderness, effusion, or edema noted. Course Course Level of Care: Express Care Visit Vital Signs Vital signs: Vital Signs Temperature 36.1 C L 12/16/24 08:43 Pulse Rate 96 12/16/24 08:43 Respiratory Rate 16 12/16/24 08:43 Blood Pressure 99/78 L 12/16/24 08:43 Pulse Oximetry 100 12/16/24 08:43 Oxygen Delivery Room Air 12/16/24 08:43 Temperature 36.1 C L 12/16/24 08:43 Pulse Rate 96 12/16/24 08:43 Respiratory Rate 16 12/16/24 08:43 Blood Pressure 99/78 L 12/16/24 08:43 Pulse Oximetry 100 12/16/24 08:43 Oxygen Delivery Room Air 12/16/24 08:43 Reviewed MDM - URI/Sore Throat MDM Narrative Medical decision making narrative: negative rapid strep. Will treat patient with antibiotic for bacterial sinusitis due to duration of symptoms and exam findings. Patient agrees with plan of care. Exam findings show no acute concerns or changes; patient is non-toxic appearing and is in no distress. Patient is appropriate for outpatient treatment and follow-up. Differential Diagnosis Differential diagnosis: Likely upper respiratory infection, sinusitis, viral infection and pharyngitis Discharge Plan Discharge Clinical Impression: Acute bacterial sinusitis Patient Disposition: Home Condition: Stable Instructions: Antibiotic Form, Sinusitis (ED) Additional Instructions: take antibiotic as prescribed until gone. Taking [id number] antihistamine daily such as Claritin or Zyrtec. Take Tylenol or ibuprofen every 6-8 hours as needed for pain. Drink at least 64 oz of water a day. Follow-up with your doctor if symptoms are not improving. Patient Language: Upper Sorbian Prescriptions: New benzonatate 200 mg capsule 200 mg PO TID PRN (Reason: cough) Qty: 20 0RF methylprednisolone [Medrol (Jeyson)] 4 mg tablets,dose pack See Rx Instructions PO .COMPLEX Qty: 21 0RF Rx Instructions: orally per package directions amoxicillin-pot clavulanate 875-125 mg tablet 1 tablet PO Q12H 7 Days Qty: 14 0RF Follow-up/Referrals: PHYSICIAN,RIGGING HELPER [Primary Care Provider] - Time of Disposition: 08:56
[2024-12-16 08:55] LABS: EDSTREPNEGPOS1 Negative (Negative)
== END 2024-12-16 09:12 | disposition home or self-care (01) ==
PROVIDERS: Emergency Provider Nurse Practitioner Family
DX: J01.90 Acute sinusitis, unspecified (principal); J45.909 Unspecified asthma, uncomplicated; K21.9 Gastro-esophageal reflux disease without esophagitis
CPT/HCPCS: 87081; 87880; 99213; G0463

== ENCOUNTER 2025-04-20 11:03 | Outpatient (CLI) | payer OTHER, SELFPAY ==
[2025-04-20 12:18] LABS: Syphilis IgG/IgM Antibody Non-Reactive (Nonreactive)
[2025-04-20 12:21] LABS: Hepatitis B Surface Antigen Negative (Negative)
[2025-04-20 12:30] LABS: HIV 1/2 Ab P24 Ag Result Negative (Negative)
== END 2025-04-20 11:04 | disposition home or self-care (01) ==
LOC: ANHLAB 11:05
PROVIDERS: Visit Provider Nurse Practitioner Family
DX: Z11.3 Encounter for screening for infections with a predominantly sexual mode of transmission (principal)
CPT/HCPCS: 36415; 86593; 86703; 86803; 87340; G0432